=== PATIENT | female | born 1985 | race Caucasian/White ===

== ENCOUNTER 2017-03-28 11:43 | Inpatient (IN) | payer MEDICARE, OTHER ==
[2017-03-28 12:40] VITALS: BP 148/93
[2017-03-28] MEDS ORDERED: DEXTROSE 50%-WATER 25 GM/50 ML SYRINGE IVP PRN (13:00)
[2017-03-28 13:07] LABS: GLUCOSE COMMENT 1 Received Meds; GLUCOSE,POINT OF CARE 266 MG/DL (70-110)
[2017-03-28] MEDS: INSULIN ASPART 100 UNITS/ML SQ PRN ×3 (13:42→20:29)
[2017-03-28 16:03] VITALS: BP 142/79
[2017-03-28 17:06] LABS: GLUCOSE COMMENT 1 Received Meds; GLUCOSE,POINT OF CARE 317 MG/DL (70-110)
[2017-03-28] MEDS ORDERED: ALBUTEROL SULFATE 2.5 MG/0.5 ML NEB SOLUTION NEB PRN (17:30)
[2017-03-28] MEDS ORDERED: BISACODYL 10 MG RECTAL RECTAL SUPPOSITORY PR PRN (17:30)
[2017-03-28] MEDS ORDERED: ACETAMINOPHEN 325 MG TABLET PO PRN ×2 (17:30→21:30)
[2017-03-28] MEDS ORDERED: IPRATROPIUM BROMIDE 0.5 MG/2.5 ML NEB SOLUTION NEB PRN (17:30)
[2017-03-28] MEDS ORDERED: HYDROCODONE/ACETAMINOPHEN 5-325 MG TABLET PO PRN (17:30)
[2017-03-28] MEDS ORDERED: MAGNESIUM HYDROXIDE SUSPENSION 30 ML UDCUP PO PRN (17:30)
[2017-03-28] MEDS ORDERED: ONDANSETRON HCL 4 MG/2 ML VIAL IVP PRN (17:30)
[2017-03-28] MEDS ORDERED: MORPHINE SULFATE 2 MG/ML SYRINGE IVP PRN (17:30)
[2017-03-28] MEDS ORDERED: SEVELAMER CARBONATE 800 MG TABLET PO SCH (18:00)
[2017-03-28] MEDS: CALCIUM ACETATE 667 MG CAPSULE PO SCH (18:36)
[2017-03-28] MEDS ORDERED: 0.9% SODIUM CHLORIDE 10 ML SYRINGE IVP PRN (19:30)
[2017-03-28 20:15] VITALS: BP 149/77
[2017-03-28] MEDS: HEPARIN SODIUM,PORCINE 5,000 UNITS/ML VIAL SQ SCH (20:21)
[2017-03-28] MEDS: SIMVASTATIN 20 MG TABLET PO SCH (20:21)
[2017-03-28] MEDS: INSULIN DETEMIR 100 UNITS/ML SQ SCH (20:22)
[2017-03-28] MEDS: MORPHINE SULFATE 2 MG/ML SYRINGE IVP PRN (20:30)
[2017-03-29] MEDS: HYDROCODONE/ACETAMINOPHEN 5-325 MG TABLET PO PRN ×2 (00:04→17:19)
[2017-03-29] MEDS: ZOLPIDEM TARTRATE 5 MG TABLET PO PRN (00:04)
[2017-03-29 00:05] VITALS: BP 134/83
[2017-03-29 05:22] LABS: GLUCOSE COMMENT 1 Received Meds; GLUCOSE,POINT OF CARE 185 MG/DL (70-110)
[2017-03-29 05:22] LABS: GLUCOSE COMMENT 1 Received Meds; GLUCOSE,POINT OF CARE 286 MG/DL (70-110)
[2017-03-29 05:23] VITALS: BP 130/66
[2017-03-29] MEDS: INSULIN ASPART 100 UNITS/ML SQ PRN ×4 (06:11→20:39)
[2017-03-29 07:11] LABS: BASOPHILS % (AUTO) 0.6 % (0.0-2.0); EOSINOPHILS % (AUTO) 3.2 % (1.0-6.0); HEMATOCRIT 26.4 % (36-46); HEMOGLOBIN 8.6 g/dL (12.0-16.0); LYMPHOCYTES # (AUTO) 1.9 K/uL (1.0-4.8); LYMPHOCYTES % (AUTO) 24.2 % (22.0-44.0); MEAN CORPUSCULAR HEMOGLOBIN 30.5 pg (26.0-34.0); MEAN CORPUSCULAR HGB CONC 32.6 G/dL (31.0-37.0); MEAN CORPUSCULAR VOLUME 94 fL (80-100); MONOCYTES # (AUTO) 0.8 K/uL (0.1-1.0); MONOCYTES % (AUTO) 10.1 % (2.0-9.0); NEUTROPHILS % (AUTO) 61.9 % (40.0-70.0); PLATELET COUNT (AUTO) 261 K/uL (150-450); RED BLOOD CELL COUNT(AUTO) 2.82 MIL/uL (4.00-5.20); RED CELL DISTRIBUTION WIDTH 16.8 % (11.5-14.5); WHITE BLOOD COUNT (AUTO) 8.1 K/uL (4.5-11.0)
[2017-03-29 07:15] LABS: HEMOGLOBIN A1C 7.4 % (4.5-6.2)
[2017-03-29 07:20] VITALS: BP 134/79
[2017-03-29 07:34] LABS: B-TYPE NATRIURETIC PEPTIDE 97 pg/mL (0-100)
[2017-03-29 07:41] LABS: ANION GAP 17 mmol/L (8-16); CALCIUM, TOTAL 6.6 mg/dL (8.8-10.5); CARBON DIOXIDE 21 mmol/L (22-29); CHLORIDE 96 mmol/L (98-107); CHOL/HDL RATIO 4.8 (3.9-5.7); CREATINE KINASE MB 0.6 ng/mL (0-5); CREATINE KINASE, TOTAL 140 U/L (26-192); CREATININE 13.68 mg/dL (0.60-1.30); GLOMERULAR FILTR. RATE CALC 3 mL/min (>60); POTASSIUM 5.4 mmol/L (3.5-5.1); SODIUM SERUM 134 mmol/L (136-145); THYROID STIMULATING HORMONE 3.49 uIU/mL (0.36-3.74); UREA NITROGEN, BLOOD 99 mg/dL (7-18)
[2017-03-29 07:56] LABS: URIC ACID 7.7 mg/dL (2.6-7.2)
[2017-03-29] MEDS ORDERED: CINACALCET HCL 30 MG TABLET PO SCH (08:00)
[2017-03-29] MEDS: CALCIUM ACETATE 667 MG CAPSULE PO SCH ×3 (08:00→18:00)
[2017-03-29] MEDS: SEVELAMER CARBONATE 800 MG TABLET PO SCH ×3 (08:00→18:00)
[2017-03-29] MEDS: PANTOPRAZOLE SODIUM 40 MG DR TABLET PO SCH (09:00)
[2017-03-29] MEDS: HEPARIN SODIUM,PORCINE 5,000 UNITS/ML VIAL SQ SCH ×2 (09:00→19:57)
[2017-03-29] MEDS: FOLIC ACID 1 MG TABLET PO SCH (09:00)
[2017-03-29] MEDS: ASPIRIN 81 MG EC TABLET PO SCH (09:00)
[2017-03-29 09:19] LABS: ERYTHROCYTE SEDIMENTATION RATE 108 MM/HR (0-20)
[2017-03-29] MEDS ORDERED: LORazepam 2 MG/ML VIAL IVP ONE ×2 (13:30→17:00)
[2017-03-29 13:46] LABS: GLUCOSE COMMENT 1 Received Meds; GLUCOSE,POINT OF CARE 158 MG/DL (70-110)
[2017-03-29] MEDS: EPOETIN ALFA 10,000 UNITS/ML VIAL SQ SCH (13:50)
[2017-03-29] MEDS: CINACALCET HCL 30 MG TABLET PO SCH (13:52)
[2017-03-29 14:51] VITALS: BP 135/82
[2017-03-29 17:27] LABS: GLUCOSE COMMENT 1 Received Meds; GLUCOSE,POINT OF CARE 200 MG/DL (70-110)
[2017-03-29 19:37] VITALS: BP 127/73
[2017-03-29] MEDS: MORPHINE SULFATE 2 MG/ML SYRINGE IVP PRN ×2 (19:57→23:57)
[2017-03-29] MEDS: SIMVASTATIN 20 MG TABLET PO SCH (19:57)
[2017-03-29] MEDS: INSULIN DETEMIR 100 UNITS/ML SQ SCH (20:40)
[2017-03-30] VITALS (7 sets, daily range): BP systolic 109–156; BP diastolic 53–80
[2017-03-30] MEDS: ZOLPIDEM TARTRATE 5 MG TABLET PO PRN ×2 (00:05→23:57)
[2017-03-30 05:23] LABS: GLUCOSE COMMENT 1 Received Meds; GLUCOSE,POINT OF CARE 176 MG/DL (70-110)
[2017-03-30] MEDS: INSULIN ASPART 100 UNITS/ML SQ PRN ×4 (06:26→20:06)
[2017-03-30] MEDS: MORPHINE SULFATE 2 MG/ML SYRINGE IVP PRN ×2 (06:27→12:29)
[2017-03-30 07:05] LABS: BASOPHILS % (AUTO) 0.6 % (0.0-2.0); EOSINOPHILS % (AUTO) 3.2 % (1.0-6.0); HEMATOCRIT 29.1 % (36-46); HEMOGLOBIN 9.4 g/dL (12.0-16.0); LYMPHOCYTES # (AUTO) 1.9 K/uL (1.0-4.8); MEAN CORPUSCULAR HEMOGLOBIN 30.3 pg (26.0-34.0); MEAN CORPUSCULAR HGB CONC 32.2 G/dL (31.0-37.0); MEAN CORPUSCULAR VOLUME 94 fL (80-100); MONOCYTES # (AUTO) 0.9 K/uL (0.1-1.0); MONOCYTES % (AUTO) 11.4 % (2.0-9.0); NEUTROPHILS # (AUTO) 4.7 K/uL (1.8-7.7); NEUTROPHILS % (AUTO) 59.8 % (40.0-70.0); PLATELET COUNT (AUTO) 271 K/uL (150-450); RED BLOOD CELL COUNT(AUTO) 3.09 MIL/uL (4.00-5.20); RED CELL DISTRIBUTION WIDTH 16.9 % (11.5-14.5); WHITE BLOOD COUNT (AUTO) 7.8 K/uL (4.5-11.0)
[2017-03-30 07:29] LABS: CALCIUM, TOTAL 7.3 mg/dL (8.8-10.5); CREATININE 10.03 mg/dL (0.60-1.30); POTASSIUM 5.4 mmol/L (3.5-5.1)
[2017-03-30 08:12] LABS: GLUCOSE COMMENT 1 Received Meds; GLUCOSE,POINT OF CARE 255 MG/DL (70-110)
[2017-03-30] MEDS: HEPARIN SODIUM,PORCINE 5,000 UNITS/ML VIAL SQ SCH ×2 (08:17→20:07)
[2017-03-30] MEDS: SEVELAMER CARBONATE 800 MG TABLET PO SCH ×3 (08:18→17:58)
[2017-03-30] MEDS: CALCIUM ACETATE 667 MG CAPSULE PO SCH ×3 (08:18→17:58)
[2017-03-30] MEDS: FOLIC ACID 1 MG TABLET PO SCH (08:18)
[2017-03-30] MEDS: ASPIRIN 81 MG EC TABLET PO SCH (08:18)
[2017-03-30] MEDS: PANTOPRAZOLE SODIUM 40 MG DR TABLET PO SCH (08:20)
[2017-03-30] MEDS ORDERED: LORazepam 2 MG/ML VIAL IVP ONE (08:30)
[2017-03-30] MEDS: CINACALCET HCL 30 MG TABLET PO SCH (12:26)
[2017-03-30 13:17] LABS: GLUCOSE COMMENT 1 Received Meds; GLUCOSE,POINT OF CARE 176 MG/DL (70-110)
[2017-03-30 17:42] LABS: GLUCOSE COMMENT 1 Received Meds; GLUCOSE,POINT OF CARE 200 MG/DL (70-110)
[2017-03-30] MEDS: HYDROmorphone 2 MG/ML SYRINGE IVP PRN ×2 (18:41→23:57)
[2017-03-30] MEDS: SIMVASTATIN 20 MG TABLET PO SCH (20:04)
[2017-03-30] MEDS: INSULIN DETEMIR 100 UNITS/ML SQ SCH (20:06)
[2017-03-30 20:37] LABS: GLUCOSE,POINT OF CARE 278 MG/DL (70-110)
[2017-03-31] MEDS: INSULIN ASPART 100 UNITS/ML SQ PRN ×4 (06:00→21:36)
[2017-03-31 06:47] LABS: GLUCOSE COMMENT 1 Received Meds; GLUCOSE,POINT OF CARE 179 MG/DL (70-110)
[2017-03-31] MEDS: PANTOPRAZOLE SODIUM 40 MG DR TABLET PO SCH (08:17)
[2017-03-31] MEDS: SEVELAMER CARBONATE 800 MG TABLET PO SCH ×3 (08:17→17:50)
[2017-03-31] MEDS: CALCIUM ACETATE 667 MG CAPSULE PO SCH ×3 (08:17→17:50)
[2017-03-31] MEDS: EPOETIN ALFA 10,000 UNITS/ML VIAL SQ SCH (08:17)
[2017-03-31] MEDS: ASPIRIN 81 MG EC TABLET PO SCH (08:17)
[2017-03-31] MEDS: FOLIC ACID 1 MG TABLET PO SCH (08:17)
[2017-03-31 08:18] VITALS: BP 144/71
[2017-03-31] MEDS: HEPARIN SODIUM,PORCINE 5,000 UNITS/ML VIAL SQ SCH ×2 (08:18→19:53)
[2017-03-31] MEDS: HYDROmorphone 2 MG/ML SYRINGE IVP PRN ×2 (08:18→19:57)
[2017-03-31] MEDS ORDERED: SODIUM CHLORIDE 0.9% 1,000 ML IV ONE (08:44)
[2017-03-31 09:07] LABS: CALCIUM, TOTAL 7.3 mg/dL (8.8-10.5); CREATININE 12.78 mg/dL (0.60-1.30); POTASSIUM 5.7 mmol/L (3.5-5.1)
[2017-03-31 09:21] LABS: BASOPHILS # (AUTO) 0.05 K/uL (0.00-0.20); BASOPHILS % (AUTO) 0.7 % (0.0-2.0); EOSINOPHILS # (AUTO) 0.23 K/uL (0.00-0.70); EOSINOPHILS % (AUTO) 3.12 % (1.0-6.0); HEMATOCRIT 29.5 % (36-46); HEMOGLOBIN 9.6 g/dL (12.0-16.0); LYMPHOCYTES # (AUTO) 1.7 K/uL (1.0-4.8); LYMPHOCYTES % (AUTO) 22.9 % (22.0-44.0); MEAN CORPUSCULAR HEMOGLOBIN 30.8 pg (26.0-34.0); MEAN CORPUSCULAR HGB CONC 32.7 G/dL (31.0-37.0); MEAN CORPUSCULAR VOLUME 94 fL (80-100); MONOCYTES # (AUTO) 0.8 K/uL (0.1-1.0); MONOCYTES % (AUTO) 10.5 % (2.0-9.0); NEUTROPHILS # (AUTO) 4.7 K/uL (1.8-7.7); NEUTROPHILS % (AUTO) 62.9 % (40.0-70.0); PLATELET COUNT (AUTO) 273 K/uL (150-450); RED BLOOD CELL COUNT(AUTO) 3.13 MIL/uL (4.00-5.20); RED CELL DISTRIBUTION WIDTH 16.8 % (11.5-14.5); WHITE BLOOD COUNT (AUTO) 7.4 K/uL (4.5-11.0)
[2017-03-31] MEDS ORDERED: MANNITOL 25%-12.5 GM/50 ML VIAL IVP PRN (12:15)
[2017-03-31] MEDS ORDERED: ALBUMIN HUMAN 25%-12.5GM/50ML IV BOTTLE IV PRN (12:15)
[2017-03-31] MEDS: PredniSONE 20 MG TABLET PO SCH (13:17)
[2017-03-31] MEDS: CINACALCET HCL 30 MG TABLET PO SCH (13:18)
[2017-03-31 15:47] VITALS: BP 138/79
[2017-03-31 16:47] LABS: GLUCOSE COMMENT 1 Received Meds; GLUCOSE,POINT OF CARE 141 MG/DL (70-110)
[2017-03-31] MEDS ORDERED: ALBUMIN HUMAN 25%-12.5GM/50ML IV BOTTLE IV ONE (17:19)
[2017-03-31 19:31] VITALS: BP 145/75
[2017-03-31 19:34] LABS: GLUCOSE COMMENT 1 Received Meds; GLUCOSE,POINT OF CARE 326 MG/DL (70-110)
[2017-03-31] MEDS: SIMVASTATIN 20 MG TABLET PO SCH (19:53)
[2017-03-31] MEDS ORDERED: INSULIN DETEMIR 100 UNITS/ML SQ SCH (21:00)
[2017-03-31] MEDS: HYDROCODONE/ACETAMINOPHEN 5-325 MG TABLET PO PRN (23:07)
[2017-03-31 23:15] VITALS: BP 133/65
[2017-03-31 23:21] LABS: GLUCOSE COMMENT 1 Received Meds; GLUCOSE,POINT OF CARE 435 MG/DL (70-110)
[2017-04-01] MEDS: ZOLPIDEM TARTRATE 5 MG TABLET PO PRN (00:21)
[2017-04-01] MEDS: HYDROmorphone 2 MG/ML SYRINGE IVP PRN ×3 (01:54→15:26)
[2017-04-01 04:00] VITALS: BP 128/74
[2017-04-01] MEDS: INSULIN ASPART 100 UNITS/ML SQ PRN ×2 (06:03→12:14)
[2017-04-01 06:22] LABS: GLUCOSE COMMENT 1 Received Meds; GLUCOSE,POINT OF CARE 283 MG/DL (70-110)
[2017-04-01 08:00] VITALS: BP 143/74
[2017-04-01] MEDS: SEVELAMER CARBONATE 800 MG TABLET PO SCH ×2 (08:41→12:11)
[2017-04-01] MEDS: CALCIUM ACETATE 667 MG CAPSULE PO SCH ×2 (08:41→12:11)
[2017-04-01] MEDS: PredniSONE 20 MG TABLET PO SCH (08:41)
[2017-04-01] MEDS: PANTOPRAZOLE SODIUM 40 MG DR TABLET PO SCH (08:41)
[2017-04-01] MEDS: HEPARIN SODIUM,PORCINE 5,000 UNITS/ML VIAL SQ SCH (08:42)
[2017-04-01] MEDS: FOLIC ACID 1 MG TABLET PO SCH (08:42)
[2017-04-01] MEDS: ASPIRIN 81 MG EC TABLET PO SCH (08:42)
[2017-04-01] MEDS: CINACALCET HCL 30 MG TABLET PO SCH (12:10)
[2017-04-01 12:29] VITALS: BP 156/67
[2017-04-01 14:02] LABS: GLUCOSE,POINT OF CARE 305 MG/DL (70-110)
[2017-04-01] MEDS ORDERED: PRED20 PO (15:07)
[2017-04-01] MEDS ORDERED: OXYC-38 PO (15:07)
[2017-04-01 15:15] VITALS: BP 132/78
== END 2017-04-01 16:45 | disposition home health service (06) | DRG 73 ==
LOC: 6N 12:22
PROVIDERS: ADMIT Internal Medicine Geriatric Medicine; ATTEND Internal Medicine Geriatric Medicine
PROC: 5A1D60Z (ICD-10-PCS; principal; 2017-03-29)
DX: E11.610 Type 2 diabetes mellitus with diabetic neuropathic arthropathy (principal); N18.6 End stage renal disease; I12.0 Hypertensive chronic kidney disease with stage 5 chronic kidney disease or end stage renal disease; N25.81 Secondary hyperparathyroidism of renal origin; E87.1 Hypo-osmolality and hyponatremia; M10.9 Gout, unspecified; S92.251A Displaced fracture of navicular [scaphoid] of right foot, initial encounter for closed fracture; E11.65 Type 2 diabetes mellitus with hyperglycemia; E11.22 Type 2 diabetes mellitus with diabetic chronic kidney disease; E66.01 Morbid (severe) obesity due to excess calories; E78.5 Hyperlipidemia, unspecified; G47.00 Insomnia, unspecified; D63.1 Anemia in chronic kidney disease; E11.319 Type 2 diabetes mellitus with unspecified diabetic retinopathy without macular edema; S91.201A Unspecified open wound of right great toe with damage to nail, initial encounter; E87.5 Hyperkalemia; E11.21 Type 2 diabetes mellitus with diabetic nephropathy; E11.36 Type 2 diabetes mellitus with diabetic cataract; X58.XXXA Exposure to other specified factors, initial encounter; Y93.89 Activity, other specified; Y92.89 Other specified places as the place of occurrence of the external cause; Z83.3 Family history of diabetes mellitus; Z98.49 Cataract extraction status, unspecified eye; Z79.4 Long term (current) use of insulin; Z99.2 Dependence on renal dialysis; Z87.441 Personal history of nephrotic syndrome; Z79.82 Long term (current) use of aspirin; Z79.899 Other long term (current) drug therapy; Y99.8 Other external cause status; Z68.36 Body mass index [BMI] 36.0-36.9, adult
CPT/HCPCS: 73718; 73721; 82306; 82607; 82746; 82962; 83036; 83735; 84145; 84439; 84443; 84550; 85379; 85651; 86140; 86592; 87040; 87081; 87340; 90935; 93306; 93970; J0885; J1170; J1644; J2060; J2270; J7030; P9047

== ENCOUNTER → 2018-07-12 | Outpatient (CLI) | payer MEDICARE, OTHER ==
[~2018-07-12] MED LIST: OXYC-38 PO; PRED20 PO
== END | disposition home or self-care (01) ==
LOC: RADPV 10:29
PROVIDERS: ATTEND Internal Medicine Geriatric Medicine
DX: M47.894 Other spondylosis, thoracic region (principal); I10 Essential (primary) hypertension; E11.9 Type 2 diabetes mellitus without complications; D64.9 Anemia, unspecified
CPT/HCPCS: 72070; 72100

== ENCOUNTER 2021-01-01 07:32 | Emergency (ER) | payer MEDICARE, OTHER ==
[~2021-01-01] VITALS: Ht 154.9 cm; Wt 97.6 kg
[2021-01-01 07:40] VITALS: BP 135/81
[2021-01-01] MEDS ORDERED: MYCO250C27 PO (08:06)
[2021-01-01] MEDS ORDERED: TACR1CAP12 PO (08:06)
[2021-01-01] MEDS ORDERED: VALG450T13 PO (08:12)
[2021-01-01] MEDS ORDERED: PRED-409 PO (08:12)
[2021-01-01] MEDS ORDERED: FURO80 PO (08:21)
[2021-01-01] MEDS ORDERED: FISH1CAP27 PO (08:21)
[2021-01-01] MEDS ORDERED: SIMV-260 PO (08:21)
[2021-01-01] MEDS ORDERED: PARO-38 PO (08:21)
[2021-01-01] MEDS ORDERED: ASPI-1450 PO (08:21)
[2021-01-01] MEDS ORDERED: CHOL-35 PO (08:21)
[2021-01-01] MEDS ORDERED: B CO1CAP6 PO (08:21)
[2021-01-01 08:46] LABS: GLUCOSE,POINT OF CARE 96 MG/DL (70-110)
== END 2021-01-01 09:14 | disposition home or self-care (01) ==
LOC: EMS 07:32
DX: M54.9 Dorsalgia, unspecified (principal); E11.9 Type 2 diabetes mellitus without complications; E78.00 Pure hypercholesterolemia, unspecified; I10 Essential (primary) hypertension
CPT/HCPCS: 82962; 99281; 99282; 99284